=== PATIENT | female | born 1945 | race Caucasian/White ===

== ENCOUNTER 2017-01-12 14:56 | Inpatient (IN) | payer MEDICARE, OTHER ==
[~2017-01-12] VITALS: Ht 160 cm; Wt 74.4 kg
[~2017-01-12 14:56] MED LIST: CALCIUM PO; CHOL500011 PO; FES300 PO; FLE10 PO; FLONASE; IBUP-1149 PO; LISI1TAB PO; MELA10TA PO; METF-487 PO; MULT-946 PO; OXYC-176 PO; RABE20TA PO; SYN.1T2 PO; TRAM100T2 PO; TRAZ150T72 PO; TYL325 PO; VITAMIN B12 IM
[2017-01-12 17:53] VITALS: PULSE 102
[2017-01-12] MEDS ORDERED: Alum-Mag Hydrox-Simeth 30 mL Suspension PO PRN (18:00)
[2017-01-12] MEDS ORDERED: Ondansetron 2 mg/mL 2 mL Inj IVPUSH PRN (18:00)
[2017-01-12] MEDS ORDERED: Polyethylene Glycol (PEG) 17 Gm Powder PO PRN (18:00)
[2017-01-12] MEDS: Diltiazem Inj 125 MG in Dextrose 5% 100 ML IV SCH (18:01)
[2017-01-12] MEDS ORDERED: HYDR5CRY MC (18:14)
--- NOTE | 2017-01-12 18:21 | PCM.HPMED ---
Subjective Date of Service Jan 12, 2017 Primary Provider: Admitting Physician: Jacky Bass MD Primary Care Physician: Other,Physician Attending Physician: Jacky Bass MD Chief Complaint: Chest pain History of Present Illness: Patient is a 71-year-old female with hypertension, hypothyroidism, type 2 diabetes mellitus and a platelet dysfunction disorder presenting as a transfer from [facility] for atrial fibrillation with RVR. She is accompanied at bedside by her . Patient reports being awoken by chest discomfort this morning at approximately 7:30AM. She describes the chest pain as a pressure with radiation to her neck. She reports associated palpitations, lightheadedness and shortness of breath. She notified her who promptly brought her to [facility] for further evaluation. In the ED, the patient was found to be in atrial fibrillation with heart rates in the 130s. She received diltiazem with transient response and was then placed on a diltiazem drip. She was subsequently transferred to [facility] for further management. At time of visit the patient reports her chest pressure has decreased. The pain radiation to her neck, shortness of breath and lightheadedness have all resolved. At time of visit the patient was hungry but otherwise denied shortness of breath, nausea, emesis, lightheadedness, dizziness, acute vision changes, abdominal pain. Labs from [facility]: WBC 4.6, Hgb 11.8, Hct 36.5, Plt 204, Na 143, K 3.8, Cl 107, CO2 27, BUN 17, creatinine 0.6, AST 20, ALT 13, Alk phos 64. Troponin-I <0.04, BNP 223, TSH 4.14. Review of Systems: A comprehensive review of systems was conducted with the patient and found to be negative except as above in the History of Present Illness Allergies Coded Allergies: Codeine (Verified Allergy, Severe, N&V (CAN TAKE IF GIVEN BENEDRYL), 02/24) Meperidine HCl (Verified Allergy, Severe, N&V, 02/25/12) Penicillins (Verified Allergy, Unknown, UNKNOWN, 02/25/12) Povidone-Iodine (Verified Allergy, Unknown, UNKNOWN, 02/25/12) Shellfish (Verified Allergy, Unknown, UNKNOWN, 02/25/12) Soap (Verified Allergy, Unknown, UNKNOWN, 02/25/12) Sulfa (Sulfonamide Antibiotics) (Verified Allergy, Unknown, UNKNOWN, ) Uncoded Allergies: ETHANOL (Allergy, Unknown, UNKNOWN (INGESTED LIQUOR), 02/25/12) GENTAMYCIN (Allergy, Unknown, UNKNOWN, 02/25/12) Home Medications Vitamin B12 IM injections monthly Levothyroxine 100mcg Metformin 500mg daily Trazodone 50mg QHS Lisinopril 20mg - HCTZ 12.5mg daily Cyclobenzaprine 10mg TID PRN Flonase 50mcg. 1 spray each nostril BID Hydrocodone-Acetaminophen 5/325mg. 1-2 tabs Q6H PRN Dexilant 60mg daily ASA 325mg PRN Vitamin B12 2500mcg daily Vitamin C 600mg daily Calcium 600mg daily Multivitamin daily Pepto-Bismol PRN Benadryl 25mg with hydrocodone/acetaminophen PMH Type 2 diabetes mellitus Hypertension Platelet dysfunction disorder Chronic back pain 2/2 scoliosis and stenosis Hypothyroidism Surgical History Cervical fusion Right knee Carpal tunnel release Gastric bypass Hiatal hernia repair Cataracts Tonsillectomy . Family History Father at 77 from CVA Mother at 89 from breast cancer Sister at 73 from multi-organ failure Social History Occupation: Retired, former RN Hx Alcohol Use: No Hx Substance Use: No Hx Tobacco Use: Yes Smoking Status: Former Smoker (Quit 1983. Smoked 1-2 PPD x 10 years prior to quitting) Living Arrangement: with Family Exam Vital Signs Vital Sign - Last Date Time Temp Pulse Resp B/P Pulse Ox O2 Delivery O2 Flow Rate FiO2 01/12/17 17:53 102 Exam General: No acute distress, well-developed, well-nourished, appropriately interactive HEENT: Normocephalic, atraumatic. External ears without defect. Pupils equal, round, and reactive to light and accommodation. Anicteric sclerae, moist conjunctivae, and no lid lag. Oropharynx free of erythema and cobble stoning with moist mucosa. Neck: Supple. No lymphadenopathy or thyromegaly. Cardiovascular: Irregularly irregular. Tachycardic with rates in low 100s. Difficult to appreciate any murmur given heart rate. Pulmonary: Clear to auscultation bilaterally with no crackles, wheezes, or rhonchi. Normal respiratory effort with no use of accessory muscles. Abdomen: Bowel tones present. Soft, nontender, nondistended. Extremities: No clubbing, cyanosis, edema, or lymphadenopathy appreciated. Skin: Normal temperature, turgor, and texture; no rash, ulcers, or subcutaneous nodules appreciated. Neurological: Cranial nerves grossly intact. Normal muscle strength, tone, and bulk. No known gait impairment. Psychiatric: Normal mood and affect. Alert and oriented to person, place, and time. Assessment & Plan Patient is a 71-year-old female with hypertension, hypothyroidism, type 2 diabetes mellitus and a platelet dysfunction disorder presenting as a transfer from [facility] for atrial fibrillation with RVR. Hospital day #1 1. Atrial fibrillation with RVR, acute. Present on admission. Active -Rate control with diltiazem drip -TSH within normal limits -Consider cardiology consultation -Holding anticoagulation given heart platelet dysfunction disorder. Will need to discuss with patient's city bus driver, Dr. Cobb -Telemetry 2. Type 2 diabetes mellitus, chronic. Present on admission. Active -Continue metformin XR 500mg daily -Bedside blood glucose checks 3. Hypothyroidism, chronic. Present on admission. Stable -TSH level normal at [facility] -Continue home levothyroxine 100mcg daily 4. Hypertension, chronic. Present on admission -Continue home lisinopril/ HCTZ 20mg -12.5mg daily 5. Chronic back pain. Present on admission. Active -Oxycodone 5mg Q6H PRN. She usually takes hydrocodone/acetaminophen 5/325, one to two tablets every 6 hours and requires Benadryl with each administration due to allergies to acetaminophen -Cyclobenzaprine 10mg TID PRN 6. GERD, chronic. Present on admission. Stable -Substitute Protonix 40mg daily for Dexilant 7. Platelet dysfunction disorder, chronic. Present on admission Patient Status: Patient is admitted under inpatient status with expected length of stay greater than 2 midnights due to severity of presenting symptoms, risk of adverse event, and complexity of treatment plan. Pain Evaluation: Adequate Pain Control VTE Prophylaxis: Other (Platelet dysfunction) VTE Mechanical Devices: Intermittant Pneumatic CD Resuscitation Status: Limited Interventions Limited Interventions: Compressions, Cardioversion/Defibrillation, BiPAP, Medications and IV Fluid Attending Statement The patient was seen and examined together with Dr. Sanchez on 01/12/2017 and I agree with the history, exam and plan as outlined in the note above. . Rafael Sanchez DO Jan 12, 2017 18:21 Jacky Bass MD Jan 13, 2017 10:49
[2017-01-12 19:25] VITALS: BP 166/66; PULSE 88; RESP 18; O2SAT 97
--- NOTE | 2017-01-12 19:29 | NUR ---
EMS arrival from [facility] Pt arrived via EMS on gurney. Pt arrived on Dilt drip 5mg. HR 109, BP 166/66. Denies chest pain or SOB. Pt transferred to bed. notified of arrival. Care continues.
[2017-01-12 20:00] VITALS: PULSE 128
[2017-01-12 20:59] VITALS: BP 147/65; PULSE 105; RESP 26; O2SAT 96
[2017-01-12] MEDS ORDERED: HYDR-4003 (21:11)
[2017-01-13] VITALS (8 sets, daily range): BP systolic 125–151; BP diastolic 66–83; PULSE 64–109; RESP 16–22; O2SAT 95–97
[2017-01-13] MEDS: Pantoprazole 40 mg ER24 Tablet PO SCH (08:09)
[2017-01-13] MEDS: Fluticasone 0.05% 15 Spray/2 Gm 16 Gm Nasal Spray NASAL SCH ×2 (08:10→20:12)
[2017-01-13 09:49] LABS: BASOPHILS % (AUTO) 0.7 % (0-3); EOSINOPHILS % (AUTO) 3.5 % (0-5); MONOCYTES % (AUTO) 12.1 % (4-12); Mean Corpuscular Hemoglobin 29.3 pg (27.0-35.0); Mean Corpuscular Volume 91.2 fL (81-100); NEUTROPHILS % (AUTO) 71.2 % (40-74); Platelet Count 240 bil/L (150-400)
[2017-01-13 10:13] LABS: INR 0.95 ratio
[2017-01-13 11:06] LABS: APPEARANCE,URINE HAZY (CLEAR,HAZY); COLOR,URINE YELLOW (YELLOW)
[2017-01-13 11:07] LABS: OCCULT BLOOD,URINE TRACE (NEGATIVE); PH,URINE 6.5 (5.0-8.0); UROBILINOGEN,URINE NORMAL (NORMAL)
[2017-01-13] MEDS: diphenhydrAMINE 25 mg Capsule PO PRN ×2 (11:20→20:15)
[2017-01-13] MEDS: HYDROcodone-APAP 5-325 mg Tablet PO PRN ×2 (11:21→20:12)
[2017-01-13] MEDS: Diltiazem CD 240 mg ER24 Capsule PO SCH (12:12)
[2017-01-13] MEDS: levoFLOXacin 250 mg Tablet PO SCH (15:17)
--- NOTE | 2017-01-13 15:53 | NUR ---
Customs Manager: Initial Assessment Data & Assessment: See Initial Assessment. EMR reviewed. Patient is a 71 y/o female to admitted to hospital for chest pain per H&P. Patient has a re-admit score of 2 no risk. SW met with patient to complete initial assessment, SW role reviewed and discharge planning discussed. Patient is alert and oriented x 3. Patient's NOK/DPOA is her spouse Emilio Spence Sr.. SW requested a copy of patient Advance directive/ DPOA. Patient's PCP is Dr. Lucio urbano. Patient's insurance is Medicare and [employer]. Patient has no VA or LTC benefits. Patient lives in a one story home with her spouse where she is independent with ADL's. Patient does not drive. Patient has had [facility] in the past. Patient has no SNF history. Patient does not have any DME. SW faxed patient prescription to her [facility] pharmacy in [place] for prices on pradaxa and Xarelto. SW notified patient that the tran is $24 for her prescription. Patient does not have any identified needs at this time. SW will continue to follow and assist patient with discharge planning needs. Plan: Patient is likely to discharge home with spouse no needs via POV. SW will continue to follow and assist patient throughout stay. Nina Pate LMSW, PRANEETH Addendum: 01/13/17 at 1606 by NINA PATE Amended: Links added.
--- NOTE | 2017-01-13 16:16 | DRSVH ---
[facility] [address] [place] [address] Echocardiogram Report Name: BREANNA BETANCOURT LStudy Date: 01/13/2017 Height: 63 in Hospital Exam Location: [facility] Weight: 166 lb Gender: Female BSA: 1.8 m2 : 1945 Age: 71 yrs BP: 143/66 mmHg Reason For Study: Atrial fibrillation Ordering Physician: Performed By: Jasson Driver Referring Physician: KISHAN BANUELOS Interpretation Summary The left ventricle is grossly normal size. The ejection fraction is estimated to be 60-65%. The right ventricle is mildly dilated. Right ventricular systolic function is at the lower limits of normal. There is mild mitral regurgitation. There is mild tricuspid regurgitation. The ascending aorta is mildly enlarged. The patient was in atrial fibrillation with rapid ventricular response during the exam with a heart rate exceeding 100 bpm. Procedure: A two-dimensional transthoracic echocardiogram with color flow and Doppler was performed. The study quality was technically adequate. There is no prior echocardiogram noted for this patient. The patient was in atrial fibrillation with rapid ventricular response during the exam with a heart rate exceeding 100 bpm. Left Ventricle: Left ventricular wall thickness is at the upper limits of normal. The left ventricle is grossly normal size. Proximal septal thickening is noted. There is no echo evidence for significant left ventricular outflow tract obstruction. There is no thrombus. The ejection fraction is estimated to be 60-65%. There is a mild dyssynchronous contraction pattern, consistent with a conduction abnormality. Diastolic function could not be accurately assessed due to atrial fibrillation. Right Ventricle: The right ventricle is mildly dilated. The right ventricle appears to be hypertrophied. Right ventricular systolic function is at the lower limits of normal. Atria: The left atrium is moderately dilated. Both atria are moderately dilated. The right atrium is moderately dilated. There is no Doppler evidence for an atrial septal defect. Mitral Valve: There is mild mitral annular calcification. The mitral valve leaflets are slightly calcified. The mitral valve chordae are thickened and/or calcified. There is mild mitral regurgitation. Aortic Valve: The aortic valve is trileaflet. The aortic valve opens well. The aortic valve is slightly calcified. There is no aortic valve stenosis. There is trace aortic regurgitation. Tricuspid Valve: The tricuspid valve is normal. Pulmonary artery pressures cannot be estimated because of the lack of a measurable TR jet velocity. There is mild tricuspid regurgitation. Pulmonic Valve: The pulmonic valve leaflets are thin and pliable; valve motion is normal. There is trace pulmonic regurgitation. Great Vessels: The aortic root is normal size. The ascending aorta is mildly enlarged. The IVC is of normal diameter and collapses greater than 50% with a sniff. This suggests a low right atrial pressure of 3 mm Hg. Pericardium/ Pleura There is no pericardial effusion. There is an anterior echo-free space consistent with a fat pad. There is no pleural effusion. MMode/2D Measurements & Calculations LVIDd: 5.3 cm LA dimension: 4.8 cm RA long axis LVOT diam LVIDs: 4.3 cm FS: 19.2 % LA A2 area: 20.6 cm RA area AoV Opening IVSd: 1.0 cm LA A4 area: 26.2 cm LVPWd: 0.93 cm LA length (vol): 5.8 cm: 23.0 cm Ao root diam LA vol: 79.2 ml RA vol LA vol index : 84.8 ml asc Aorta RA Diam: 3.6 cm : 44.4 ml/m2 : 47.5 mm2 LV solo. diameter/BSA LV sys. diameter/BSA RVD1 (basal) RVD2 (mid) (cm/m^2): 3.0 (cm/m^2): 2.4 : 3.1 cm Doppler Measurements & Calculations Ao V2 max MV P1/2t Med Peak E' Wes PA V2 max : 149.8 cm/sec : 44.6 msec : 107.7 cm/sec Ao max P.0 mmHg Lat Peak E' Wes PA mean PG Ao mean P.0 mmHg : 11.9 cm/sec LVOT Max Wes PA Accel Time : 101.3 cm/sec : 0.10 sec ISAIAS(I,D): 2.6 cm sev ratio: 0.71 MV P1/2t max wes Ao V2 mean LV V1 max PG PA V2 mean : 104.3 cm/sec : 67.3 cm/sec Ao V2 VTI LV V1 VTI: 15.9 cm PA pr(Accel) MVA(P1/2t): 4.9 cm2 : 37.0 mmHg ISAIAS(V,D): 2.4 cm2 ISAIAS indexed to BSA (cm^2/m^2): 1.4 Reading Physician:PM
--- NOTE | 2017-01-13 16:56 | NUR ---
Cardizem Pt received 240mg Cardizem PO at 1200. Cardizem drip was titrated from 7mg/hr to 5mg/hr for the next hour then turned to 2.5mg/hr then turned off. Pt's HR at rest mid 90's, with activity walking to the bathroom she gets up to 140's. States no SOB with activity or faintness. MD's aware and will continue to monitor.
[2017-01-13] MEDS ORDERED: metFORMIN ER 500 mg ER24 Tablet PO SCH (17:30)
[2017-01-13] MEDS: Diltiazem Inj 125 MG in Dextrose 5% 100 ML IV SCH (17:31)
--- NOTE | 2017-01-13 20:47 | PCM.PNMED ---
Subjective Date of Service Jan 13, 2017 Subjective Normal overnight events. Patient continues to be in A-fib with a rate 80-90s with occasional PVCs. Patient states she feels better. She denies chest pain, palpitations, shortness of breath. Exam Vital Signs Vital Sign - Last Date Time Temp Pulse Resp B/P Pulse Ox O2 Delivery O2 Flow Rate FiO2 01/13/17 20:02 36.7 107 22 144/83 97 Room Air Intake and Output 01/12/17 01/12/17 01/13/17 Cumulative From/Thru 14:59 22:59 06:59 01/12/17 17:45 - 01/13/17 06:12 Intake Total 450 ml 450 ml Output Total 625 ml 625 ml Balance -175 ml -175 ml Intake Oral 450 ml 450 ml Output Urine Total 625 ml 625 ml # Voids 2 2 Exam General: No acute distress, well-developed, well-nourished, appropriately interactive HEENT: Normocephalic, atraumatic. External ears without defect. Pupils equal, round, and reactive to light and accommodation. Anicteric sclerae, moist conjunctivae, and no lid lag. Oropharynx free of erythema and cobble stoning with moist mucosa. Neck: Supple. No lymphadenopathy or thyromegaly. Cardiovascular: Irregularly irregular. Tachycardic with rates in 80-90s. Difficult to appreciate any murmur given heart rate. Pulmonary: Clear to auscultation bilaterally with no crackles, wheezes, or rhonchi. Normal respiratory effort with no use of accessory muscles. Abdomen: Bowel tones present. Soft, nontender, nondistended. Extremities: No clubbing, cyanosis, edema, or lymphadenopathy appreciated. Skin: Normal temperature, turgor, and texture; no rash, ulcers, or subcutaneous nodules appreciated. Neurological: Cranial nerves grossly intact. Normal muscle strength, tone, and bulk. No known gait impairment. Psychiatric: Normal mood and affect. Alert and oriented to person, place, and time. Lab and Diagnostics Result Diagram: 01/13/17 0940 01/13/17 0350 Cardiac Echo Impressions Echocardiogram Report Interpretation Summary The left ventricle is grossly normal size. The ejection fraction is estimated to be 60-65%. The right ventricle is mildly dilated. Right ventricular systolic function is at the lower limits of normal. There is mild mitral regurgitation. There is mild tricuspid regurgitation. The ascending aorta is mildly enlarged. The patient was in atrial fibrillation with rapid ventricular response during the exam with a heart rate exceeding 100 bpm. Assessment & Plan Patient is a 71-year-old female with hypertension, hypothyroidism, type 2 diabetes mellitus and a platelet dysfunction disorder presenting as a transfer from [facility] for atrial fibrillation with RVR. Hospital day #2 1. Atrial fibrillation with RVR, acute. Present on admission. Active -Rate control with diltiazem drip titrated from 7mg/hr to 5mg/hr, then to 2.5mg/ hr then turned off -Start diltiazem 240 mg by mouth daily -Patient's platelet disorder has been discussed with Dr. Cobb. He confirmed that patient does not have Glanzmann thrombasthenia. -Patient was started on Xarelto 20 mg a day -ECHO: The ejection fraction is estimated to be 60-65%. There is mild mitral and tricuspid -Telemetry 2. Urinary tract infection, asymptomatic, present on admission. Active -Levofloxacin 250 mg daily -Urine culture pending 3. Type 2 diabetes mellitus, chronic. Present on admission. Active -Continue metformin XR 500mg daily -Bedside blood glucose checks 4. Hypothyroidism, chronic. Present on admission. Stable -TSH level normal at [facility] -Continue home levothyroxine 100mcg daily 5. Hypertension, chronic. Present on admission -Continue home lisinopril/ HCTZ 20mg -12.5mg daily 6. Chronic back pain. Present on admission. Active -Oxycodone 5mg Q6H PRN. She usually takes hydrocodone/acetaminophen 5/325, one to two tablets every 6 hours and requires Benadryl with each administration due to allergies to acetaminophen -Cyclobenzaprine 10mg TID PRN 7. GERD, chronic. Present on admission. Stable -Substitute Protonix 40mg daily for Dexilant 8. history of Platelet dysfunction disorder, chronic. Present on admission -See #1 Patient Status: Patient is admitted under inpatient status with expected length of stay greater than 2 midnights due to severity of presenting symptoms, risk of adverse event, and complexity of treatment plan. discharge on 01/14 if HR remains controlled on po cardizem VTE Prophylaxis: Other (Platelet dysfunction) VTE Mechanical Devices: Intermittant Pneumatic CD Resuscitation Status: Limited Interventions Limited Interventions: Compressions, Cardioversion/Defibrillation, BiPAP, Medications and IV Fluid Attending Statement The patient was seen and examined together with Dr. Little on 01/13/2017 and I agree with the history, exam and plan as outlined in the note above. Zenaida Little DO Jan 13, 2017 20:47 Armando Burt MD Jan 14, 2017 06:47
[2017-01-13] MEDS ORDERED: Nitrofurantoin Monohyd-Macrocryst 100 mg Capsule PO SCH (21:05)
[2017-01-14 03:14] VITALS: BP 127/74; PULSE 94; RESP 22; O2SAT 97
--- NOTE | 2017-01-14 03:35 | NUR ---
IV/SL/RA/Pain IV start in left hand, saline locked , on room air,Chronic back pain, Norco5-325, flexeril . A&Ox 3 using call light appropriately, Independent to toilet , Tele A-fib activity spike
[2017-01-14] MEDS: diphenhydrAMINE 25 mg Capsule PO PRN ×2 (04:10→10:08)
[2017-01-14] MEDS: HYDROcodone-APAP 5-325 mg Tablet PO PRN ×2 (04:10→10:08)
[2017-01-14 04:30] VITALS: PULSE 101
[2017-01-14 05:03] LABS: BASOPHILS % (AUTO) 0.5 % (0-3); EOSINOPHILS % (AUTO) 3.6 % (0-5); MONOCYTES % (AUTO) 16.6 % (4-12); Mean Corpuscular Hemoglobin 29.9 pg (27.0-35.0); Mean Corpuscular Volume 90.8 fL (81-100); NEUTROPHILS % (AUTO) 61.9 % (40-74); Platelet Count 264 bil/L (150-400)
[2017-01-14 08:30] VITALS: BP 118/80; PULSE 77; RESP 16; O2SAT 98
[2017-01-14] MEDS: levoFLOXacin 250 mg Tablet PO SCH (08:51)
[2017-01-14] MEDS: Diltiazem CD 240 mg ER24 Capsule PO SCH (08:51)
[2017-01-14] MEDS: Pantoprazole 40 mg ER24 Tablet PO SCH (08:51)
[2017-01-14] MEDS: Fluticasone 0.05% 15 Spray/2 Gm 16 Gm Nasal Spray NASAL SCH (08:53)
--- NOTE | 2017-01-14 11:12 | PCM.DIMED ---
Zenaida Little DO 01/14/17 1112: Discharge Instructions Date of Service Jan 14, 2017 Dates of Hospitalization Jan 12, 2017 at 16:07 Discharge Diagnosis Discharge Diagnosis 1. Atrial fibrillation with RVR 2. Urinary tract infection 3. Type 2 diabetes mellitus 4. Hypothyroidism 5. Hypertension 6. Chronic back pain 7. GERD 8. History of Platelet dysfunction disorder Medication Instructions 1. Please take Xarelto, 20 mg by mouth daily. 2. Please take Diltiazem, 360 mg by mouth daily. 3. Please take Levofloxacin, 250 mg by mouth x 2 days. Diet Heart Healthy Activity Limited until seen by PCP Call your provider Fever or Chills, Shortness of breath, Bleeding, Chest pain, Vomitting, Excessive diarrhea, Weakness (unilateral) Patient Instructions Follow-up plan Follow up with your PCP, Lucio Sosa, in 1-2 weeks. Follow-up with PCP in: 1 week Armando Burt MD 01/14/177: Discharge Instructions Attending's Statement The patient was seen and examined together with Dr. Little on 01/14/2017 and I agree with the discharge instructions as outlined in the note above. Zenaida Little DO Jan 14, 2017 11:12 Armando Burt MD Jan 14, 2017 20:47
[2017-01-14] MEDS ORDERED: LEVO250T45 PO (11:16)
[2017-01-14] MEDS ORDERED: RIVA20TA PO (11:16)
[2017-01-14] MEDS ORDERED: DILT360C36 PO (11:16)
--- NOTE | 2017-01-14 11:31 | PCM.DC.MED ---
Discharge Summary Date of Service Jan 14, 2017 Dates of Hospitalization Date of Hospital Admission Jan 12, 2017 at 16:07 Date of Discharge: Jan 14, 2017 Providers: Admitting Physician: Jacky Bass MD Primary Care Physician: Other,Physician Attending Physician: Jacky Bass MD Diagnosis at Time of Discharge Diagnosis at Time of Discharge 1. Atrial fibrillation with RVR 2. Urinary tract infection 3. Type 2 diabetes mellitus 4. Hypothyroidism 5. Hypertension 6. Chronic back pain 7. GERD 8. History of Platelet dysfunction disorder Procedures Cardiac Echo Impression Echocardiogram Report Interpretation Summary The left ventricle is grossly normal size. The ejection fraction is estimated to be 60-65%. The right ventricle is mildly dilated. Right ventricular systolic function is at the lower limits of normal. There is mild mitral regurgitation. There is mild tricuspid regurgitation. The ascending aorta is mildly enlarged. The patient was in atrial fibrillation with rapid ventricular response during the exam with a heart rate exceeding 100 bpm. Brief History Per Admitting Physician: Jacky Bass MD: History of Present Illness: Patient is a 71-year-old female with hypertension, hypothyroidism, type 2 diabetes mellitus and a platelet dysfunction disorder presenting as a transfer from [facility] for atrial fibrillation with RVR. She is accompanied at bedside by her . Patient reports being awoken by chest discomfort this morning at approximately 7:30AM. She describes the chest pain as a pressure with radiation to her neck. She reports associated palpitations, lightheadedness and shortness of breath. She notified her who promptly brought her to [facility] for further evaluation. In the ED, the patient was found to be in atrial fibrillation with heart rates in the 130s. She received diltiazem with transient response and was then placed on a diltiazem drip. She was subsequently transferred to [facility] for further management. At time of visit the patient reports her chest pressure has decreased. The pain radiation to her neck, shortness of breath and lightheadedness have all resolved. At time of visit the patient was hungry but otherwise denied shortness of breath, nausea, emesis, lightheadedness, dizziness, acute vision changes, abdominal pain. Labs from [facility]: WBC 4.6, Hgb 11.8, Hct 36.5, Plt 204, Na 143, K 3.8, Cl 107, CO2 27, BUN 17, creatinine 0.6, AST 20, ALT 13, Alk phos 64. Troponin-I <0.04, BNP 223, TSH 4.14. Hospital Course Patient is a 71-year-old female with hypertension, hypothyroidism, type 2 diabetes mellitus and a platelet dysfunction disorder presenting as a transfer from [facility] for atrial fibrillation with RVR. 1. Atrial fibrillation with RVR, acute. Present on admission. Active NEW DIAGNOSIS -Rate control with diltiazem drip titrated from 7mg/hr to 5mg/hr, then to 2.5mg/ hr then turned off -Started diltiazem 240 mg by mouth daily -Patient's platelet disorder has been discussed with Dr. Cobb. He confirmed that patient does not have Glanzmann thrombasthenia -Continued with Xarelto 20 mg daily upon discharge -Continued with Diltiazem 360 mg by mouth daily upon discharge 2. Urinary tract infection, asymptomatic, present on admission. Active -Levofloxacin 250 mg daily x 2 more days upon discharge -Urine culture no growth 3. Type 2 diabetes mellitus, chronic. Present on admission. Active -Continued with metformin XR 500 mg daily -Bedside blood glucose checks 4. Hypothyroidism, chronic. Present on admission. Stable -TSH level normal at [facility] -Continued with home levothyroxine 100 mcg daily 5. Hypertension, chronic. Present on admission -Continued home Lisinopril/ HCTZ 20mg -12.5 mg daily 6. Chronic back pain. Present on admission. Active -Continued with with home hydrocodone/acetaminophen 5/325, one to two tablets every 6 hours and Benadryl 50 mg with each administration due to allergies to acetaminophen -Cyclobenzaprine 10mg TID PRN 7. GERD, chronic. Present on admission. Stable -Substituted Protonix 40mg daily for Dexilant 8. History of Platelet dysfunction disorder, chronic. Present on admission -See #1 Patient Status: Patient was discharged home in a stable condition on hospital day 3. Exam Vital Signs (Last) Date Time Temp Pulse Resp B/P Pulse Ox O2 Delivery O2 Flow Rate FiO2 01/14/17 08:30 37.0 77 16 118/80 98 Room Air Exam General: No acute distress, well-developed, well-nourished, appropriately interactive HEENT: Normocephalic, atraumatic. External ears without defect. Pupils equal, round, and reactive to light and accommodation. Anicteric sclerae, moist conjunctivae, and no lid lag. Oropharynx free of erythema and cobble stoning with moist mucosa. Neck: Supple. No lymphadenopathy or thyromegaly. Cardiovascular: Irregularly irregular. Tachycardic with rates in low 100s. Difficult to appreciate any murmur given heart rate. Pulmonary: Clear to auscultation bilaterally with no crackles, wheezes, or rhonchi. Normal respiratory effort with no use of accessory muscles. Abdomen: Bowel tones present. Soft, nontender, nondistended. Extremities: No clubbing, cyanosis, edema, or lymphadenopathy appreciated. Skin: Normal temperature, turgor, and texture; no rash, ulcers, or subcutaneous nodules appreciated. Neurological: Cranial nerves grossly intact. Normal muscle strength, tone, and bulk. No known gait impairment. Psychiatric: Normal mood and affect. Alert and oriented to person, place, and time. Test 01/13/17 03:50 01/13/17 09:40 01/13/17 10:30 01/14/17 04:27 Hemoglobin A1c 6.0% (4.8-5.6) Triglycerides Level 123mg/dL (0-149) Cholesterol Level 247mg/dL (100-199) LDL Cholesterol, Calculated 162.400mg/dL (0-99) VLDL Cholesterol 24.600mg/dL HDL Cholesterol 60mg/dL (>39) Cholesterol/HDL Ratio 4.12 (0.0-4.4) Prothrombin Time 10.2sec (8.1-12.5) Prothromb Time International Ratio 0.95ratio Activated Partial Thromboplast Time 23.6sec (22.8-33.0) Urine Color Yellow (YELLOW) Urine Appearance Hazy (CLEAR,HAZY) Urine pH 6.5 (5.0-8.0) Urine Specific Blairs 1.005 (1.003-1.035) Urine Protein Negativemg/dL (NEG,TRACE) Urine Glucose (UA) Negativemg/dL (NEGATIVE) Urine Ketones Negativemg/dL (NEGATIVE) Urine Occult Blood Trace (NEGATIVE) Urine Nitrite Negative (NEGATIVE) Urine Bilirubin Negative (NEGATIVE) Urine Urobilinogen Normalmg/dL (NORMAL) Urine Leukocyte Esterase Small (NEGATIVE) Urine RBC 0-2/hpf (0-2) Urine WBC 11-50/hpf (0-5) Urine Epithelial Cells Moderate/hpf (NONE-MOD) Urine Crystals None seen (NONE SEEN) Urine Bacteria Few/hpf (NONE-FEW) Urine Hyaline Casts None/lpf (NONE) Urine Granular Casts None seen (NONE SEEN) Urine Waxy Casts None seen (NONE SEEN) Urine Red Blood Cell Casts None seen (NONE SEEN) Urine White Blood Cell Casts None seen (NONE SEEN) Urine Mucus None seen (None Seen) Urine Trichomonas None seen (NONE SEEN) Urine Yeast None (NONE SEEN) Urinalysis Comment None Urine Culture Reflexed Indicated White Blood Count 6.5th/mm3 (3.8-10.1) Red Blood Count 4.35mil/mm3 (3.90-5.20) Hemoglobin 13.0g/dL (12.0-15.6) Hematocrit 39.5% (35.0-46.0) Mean Corpuscular Volume 90.8fL (81-100) Mean Corpuscular Hemoglobin 29.9pg (27.0-35.0) Mean Corpuscular Hemoglobin Concent 32.9% (32.0-37.0) Red Cell Distribution Width 14.5% (12.3-15.4) Platelet Count 264bil/L (150-400) Neutrophils (%) (Auto) 61.9% (40-74) Lymphocytes (%) (Auto) 17.2% (14-46) Monocytes (%) (Auto) 16.6% (4-12) Eosinophils (%) (Auto) 3.6% (0-5) Basophils (%) (Auto) 0.5% (0-3) Sodium Level 140mEq/L (134-144) Potassium Level 4.1mEq/L (3.5-5.2) Chloride Level 105mEq/L (97-108) Carbon Dioxide Level 20mmol/L (18-29) Blood Urea Nitrogen 14mg/dL (8-27) Creatinine 0.68mg/dL (0.57-1.00) Estimat Glomerular Filtration Rate 122mL/min (>59) Glucose Level 113mg/dL (60-99) Calcium Level 9.6mg/dL (8.5-10.1) Total Bilirubin 0.3mg/dL (0.0-1.2) Aspartate Amino Transf (AST/SGOT) 17U/L (0-50) Alanine Aminotransferase (ALT/SGPT) 8U/L (0-32) Alkaline Phosphatase 63U/L (25-165) Total Protein 6.4g/dL (6.4-8.4) Albumin 3.8g/dL (3.4-5.0) Discharge Medications Discharge Medications ([Vitamin B12]) IM MONTHLY (Reported) Acetaminphen-Expunged Drug, Do Not Renew! (Acetaminphen-Expunged Drug, Do Not Renew!) 325 Mg Tablet 325 MG PO Q4HP (Reported) TAKE TWO TABLETS EVERY 4 HOURS NEEDED FOR PAIN Cyclobenzaprine-Expunged Drug, Do Not Renew! (Flexeril-Expunged Drug, Do Not Renew!) 10 Mg Tablet 10 MG PO TID (Reported) Diltiazem ER (Diltiazem ER) 360 Mg Cap.er.24h 360 MG PO DAILY Prescribed by: JESSICA LITTLE, DO FLUTICASONE-Expunged Drug, Do Not Renew! (FLONASE-Expunged Drug, Do Not Renew!) 120 Sprays/16 Gm Aero 1 SPRAYS NA BID (Reported) Ferrous Sulfate-Expunged Drug, Do Not Renew! (Feosol-Expunged Drug, Do Not Renew !) 325 Mg Tablet 325 ( PO TID (Reported) Hydrocodone Bitartrate (Hydrocodone Bitartrate) 5 Gm Crystals 5 GM MC QID ( Reported) IBUPROFEN-Expunged Drug, Do Not Renew! (IBUPROFEN-Expunged Drug, Do Not Renew!) 600 Mg Tablet 600 MG PO PRN (Reported) Levothyroxine-Expunged Drug, Do Not Renew! (Synthroid-Expunged Drug, Do Not Renew!) 100 Mcg Tablet 100 MCG PO AM (Reported) Lisin/HCTZ-Expunged, Do Not Renew! (Lisin/HCTZ 20/12-Expunged, Do Not Renew!) 1 Each Tablet 1 EACH PO AM (Reported) MULTIVIT, IRON, MIN NO. 8, FA-Expunged Drug, (AXSTESESBLP-U-[facility], Do Not Renew!) 1 Each Tablet 1 EACH PO DAILY (Reported) Metformin-Expunged Drug, Do Not Renew! (Metformin-Expunged Drug, Do Not Renew!) 500 Mg Tab.er.24 500 MG PO DAILY (Reported) Rivaroxaban (Xarelto) 20 Mg Tablet 20 MG PO DAILY Prescribed by: JESSICA LITTLE DO As needed Levofloxacin (Levofloxacin) 250 Mg Tablet 250 MG PO DAILY PRN PRN AD Prescribed by: JESSICA LITTLE DO Miscellaneous Medications Hydrocodone-Acetaminophen 5-325 mg (Hydrocodone-Acetaminophen 5-325 mg) 1 Each Tablet (Reported) Additional med instructions 1. Please take Xarelto, 20 mg by mouth daily. 2. Please take Diltiazem, 360 mg by mouth daily. 3. Please take Levofloxacin, 250 mg by mouth x 2 days. Followup Plan Follow-up plan Follow up with your PCP, Lucio Sosa, in 1-2 weeks. Discharge Diet: Heart Healthy Discharge Activity: Limited until seen by PCP Follow-up with PCP in: 1 week Time spent 35 minutes Attending Statement The patient was seen and examined together with Dr. Little on 01/14/2017 and I agree with the discharge summary as outlined in the note above. Jessica Little DO Jan 14, 2017 11:31 Armando Burt MD Jan 14, 2017 20:45
--- NOTE | 2017-01-14 12:19 | NUR ---
Social Work Note: Discharge Data& Assessment: Per pt is medically improved and ready to discharge home via POV. SW met with pt at bedside to confirm discharge plan and assess for any unmet needs. Gill Spence is a 71 year old female admitted on 01/12/2017 for chest pain. Per pt is medically improved. Pt is ambulating at baseline. Pt will be transporting pt home this afternoon. Pt denies any other needs. No other discharge needs identified. All updated and agreeable to plan. Plan: Per pt is medically ready to discharge home via POV. Pt denies any other needs. No other discharge needs identified. All updated and agreeable to plan. CHARLES Waite
[2017-01-14 12:54] VITALS: PULSE 108
--- NOTE | 2017-01-14 13:45 | NUR ---
Discharge Pt discharged at 1335. She was accompanied by her . She was given discharge instructions and instructions for follow up care. She confirmed understanding of these instructions. She was give a hard copy of prescriptions to take with her. All of her belongings were returned to her. She was taken by wheelchair by unit staff to the exit where her picked her up in their car and would be driving her home.
== END 2017-01-14 13:07 | disposition home or self-care (01) | DRG 309 ==
LOC: PCC 16:07
PROVIDERS: ADMIT Internal Medicine; ATTEND Internal Medicine
DX: I48.91 Unspecified atrial fibrillation (principal); N39.0 Urinary tract infection, site not specified; E11.9 Type 2 diabetes mellitus without complications; E03.9 Hypothyroidism, unspecified; I10 Essential (primary) hypertension; Z79.84 Long term (current) use of oral hypoglycemic drugs; Z79.82 Long term (current) use of aspirin; Z98.84 Bariatric surgery status; Z87.891 Personal history of nicotine dependence; K21.9 Gastro-esophageal reflux disease without esophagitis; D69.1 Qualitative platelet defects; M54.9 Dorsalgia, unspecified